=== PATIENT | female | born 1970 | race Caucasian/White ===

== ENCOUNTER → 2016-09-08 | Outpatient (CLI) | payer OTHER ==
[~2016-09-08] VITALS: Wt 90.9 kg
[~2016-09-08] MED LIST: GOOD NEIGHBOR200 M1
[2016-09-08 12:33] VITALS: BP 137/69
== END ==
LOC: AMSURD 12:26
DX: I49.8 Other specified cardiac arrhythmias (principal)

== ENCOUNTER → 2017-01-07 | Outpatient (CLI) | payer SELFPAY ==
[2016-09-08 12:33] VITALS: BP 137/69
== END ==
LOC: MAMMO 08:14
DX: Z12.31 Encounter for screening mammogram for malignant neoplasm of breast (principal)
CPT/HCPCS: G0202

== ENCOUNTER → 2020-03-15 | Outpatient (CLI) | payer SELFPAY ==
[2016-09-08 12:33] VITALS: BP 137/69
[2020-03-15 15:52] LABS: EOS # 0.2 (0.04-0.40); EOS % 3.2 % (1.0-5.0); HEMATOCRIT 40.7 % (37.0-47.0); LYMPH# 2.3 (1.50-4.00); MEAN CELL VOLUME 90 fl (78-100); MEAN CORPUSCULAR HEMOGLOBIN 29 pg (27-31); MEAN CORPUSCULAR HGB CONC 32 g/dL (33-37); MEAN PLATELET VOLUME 10.4 fl (7.4-10.4); MONO # 0.4 (0.20-0.80); NEU # 4.5 (1.40-6.50); PLATELET COUNT 279 K/mm3 (130-400); RED BLOOD COUNT 4.55 M/mm3 (4.10-5.30); WHITE BLOOD COUNT 7.5 K/mm3 (4.8-10.8)
[2020-03-15 15:59] LABS: POTASSIUM 3.7 mmol/L (3.5-5.1)
[2020-03-15 16:00] LABS: CALCIUM 9.1 mg/dL (8.3-10.5)
[2020-03-15 16:03] LABS: TOTAL BILIRUBIN 0.2 mg/dL (0.2-1.2)
== END ==
LOC: LAB 15:38
PROVIDERS: Family Medicine
DX: Z00.00 Encounter for general adult medical examination without abnormal findings (principal); E78.5 Hyperlipidemia, unspecified; E03.9 Hypothyroidism, unspecified

== ENCOUNTER → 2020-06-05 | Outpatient (CLI) | payer SELFPAY ==
[2016-09-08 12:33] VITALS: BP 137/69
== END ==
LOC: LAB 10:10
DX: N02.9 Recurrent and persistent hematuria with unspecified morphologic changes (principal)

== ENCOUNTER → 2021-03-19 | Outpatient (CLI) | payer SELFPAY ==
[2021-03-19 11:20] LABS: ALBUMIN 4.2 g/dL (3.5-5.0); POTASSIUM 3.8 mmol/L (3.5-5.1)
[2021-03-19 11:21] LABS: BASO # 0.06 K/mm3 (0.02-0.10); EOS # 0.24 K/mm3 (0.04-0.40); EOS % 3.8 % (1.0-5.0); HEMATOCRIT 42.1 % (37.0-47.0); LYMPH# 2.26 K/mm3 (1.50-4.00); MEAN CELL VOLUME 88 fl (78-100); MEAN CORPUSCULAR HEMOGLOBIN 29 pg (27-31); MEAN CORPUSCULAR HGB CONC 33 g/dL (33-37); MEAN PLATELET VOLUME 10.3 fl (7.4-10.4); MONO # 0.39 K/mm3 (0.20-0.80); NEU # 3.34 K/mm3 (1.40-6.50); PLATELET COUNT 290 K/mm3 (130-400); RED BLOOD COUNT 4.77 M/mm3 (4.10-5.30); RED CELL DISTRIBUTION WIDTH 12.8 % (11.5-14.5); WHITE BLOOD COUNT 6.3 K/mm3 (4.8-10.8)
[2021-03-19 11:22] LABS: CALCIUM 10.3 mg/dL (8.3-10.5)
[2021-03-19 11:23] LABS: TOTAL PROTEIN 7.6 g/dL (6.4-8.3)
[2021-03-19 11:25] LABS: TOTAL BILIRUBIN 0.3 mg/dL (0.2-1.2)
== END ==
LOC: LAB 10:27
PROVIDERS: Family Medicine
DX: Z00.00 Encounter for general adult medical examination without abnormal findings (principal); E78.5 Hyperlipidemia, unspecified

== ENCOUNTER → 2022-03-16 | Outpatient (CLI) | payer SELFPAY ==
[2022-03-16 17:57] LABS: URINE APPEARANCE HAZY; URINE BILIRUBIN NEGATIVE (NEGATIVE); URINE BLOOD 250 ery/uL (NEGATIVE); URINE COLOR YELLOW; URINE GLUCOSE NEGATIVE (NEGATIVE); URINE KETONE NEGATIVE (NEGATIVE); URINE LEUKOCYTE ESTERASE 2+ (NEGATIVE); URINE NITRATE POSITIVE (NEGATIVE); URINE PROTEIN(semi-quant) 1+ (NEGATIVE); URINE UROBILINOGEN NORMAL (NORMAL); URINE WBC 16-30 /hpf (0-3)
== END ==
LOC: LAB 16:48
PROVIDERS: Family Medicine
DX: N39.0 Urinary tract infection, site not specified (principal)

== ENCOUNTER → 2022-04-07 | Outpatient (CLI) | payer SELFPAY ==
[2022-04-07 12:02] LABS: BASO # 0.06 K/mm3 (0.02-0.10); EOS # 0.14 K/mm3 (0.04-0.40); EOS % 2.2 % (1.0-5.0); HEMATOCRIT 41.3 % (37.0-47.0); HEMOGLOBIN 13.5 g/dL (12.5-16.0); LYMPH# 2.26 K/mm3 (1.50-4.00); MEAN CELL VOLUME 89 fl (78-100); MEAN CORPUSCULAR HEMOGLOBIN 29 pg (27-31); MEAN CORPUSCULAR HGB CONC 33 g/dL (33-37); MEAN PLATELET VOLUME 10.1 fl (7.4-10.4); MONO # 0.34 K/mm3 (0.20-0.80); NEU # 3.49 K/mm3 (1.40-6.50); PLATELET COUNT 308 K/mm3 (130-400); RED BLOOD COUNT 4.63 M/mm3 (4.10-5.30); WHITE BLOOD COUNT 6.3 K/mm3 (4.8-10.8)
[2022-04-07 12:06] LABS: ALBUMIN 4.3 g/dL (3.5-5.0); POTASSIUM 4.1 mmol/L (3.5-5.1)
[2022-04-07 12:08] LABS: TOTAL PROTEIN 7.7 g/dL (6.4-8.3)
[2022-04-07 12:10] LABS: TOTAL BILIRUBIN 0.4 mg/dL (0.2-1.2)
== END ==
LOC: LAB 11:44
PROVIDERS: Family Medicine
DX: Z00.00 Encounter for general adult medical examination without abnormal findings (principal); Z12.39 Encounter for other screening for malignant neoplasm of breast; N95.2 Postmenopausal atrophic vaginitis; N39.0 Urinary tract infection, site not specified; E78.5 Hyperlipidemia, unspecified; R00.2 Palpitations; E66.9 Obesity, unspecified

== ENCOUNTER → 2023-04-01 | Outpatient (CLI) | payer SELFPAY ==
[2023-04-01 17:33] LABS: BASO # 0.06 K/mm3 (0.02-0.10); EOS # 0.21 K/mm3 (0.04-0.40); EOS % 2.7 % (1.0-5.0); HEMATOCRIT 41.3 % (37.0-47.0); HEMOGLOBIN 13.6 g/dL (12.5-16.0); LYMPH# 3.37 K/mm3 (1.50-4.00); MEAN CELL VOLUME 88 fl (78-100); MEAN CORPUSCULAR HEMOGLOBIN 29 pg (27-31); MEAN CORPUSCULAR HGB CONC 33 g/dL (33-37); MONO # 0.42 K/mm3 (0.20-0.80); NEU # 3.81 K/mm3 (1.40-6.50); PLATELET COUNT 312 K/mm3 (130-400); RED BLOOD COUNT 4.71 M/mm3 (4.10-5.30); RED CELL DISTRIBUTION WIDTH 12.3 % (11.5-14.5); WHITE BLOOD COUNT 7.9 K/mm3 (4.8-10.8)
[2023-04-01 17:38] LABS: ALBUMIN 4.3 g/dL (3.5-5.0)
[2023-04-01 17:39] LABS: CALCIUM 10.1 mg/dL (8.3-10.5)
[2023-04-01 17:40] LABS: TOTAL PROTEIN 7.5 g/dL (6.4-8.3)
[2023-04-01 17:42] LABS: TOTAL BILIRUBIN 0.3 mg/dL (0.2-1.2)
== END ==
LOC: LAB 17:10
PROVIDERS: Nurse Practitioner
DX: Z00.00 Encounter for general adult medical examination without abnormal findings (principal)